=== PATIENT | male | born 1970 | race Hispanic/Latino ===

== ENCOUNTER 2019-01-17 12:41 | Emergency (ER) | payer OTHER | END 2019-01-17 15:18 | disposition home or self-care (01) | LOC: EDH 12:41 → EEVIPCON 12:41 → EDH 15:18 | DX: S01.112A Laceration without foreign body of left eyelid and periocular area, initial encounter (principal); Z88.0 Allergy status to penicillin; W22.8XXA Striking against or struck by other objects, initial encounter; Y93.89 Activity, other specified; Y92.89 Other specified places as the place of occurrence of the external cause; Y99.8 Other external cause status | CPT/HCPCS: 12011; 70450; 72125 ==